=== PATIENT | female | born 1955 | race Caucasian/White ===

== ENCOUNTER 2021-07-02 19:48 | Emergency (ER) | payer MEDICARE, OTHER ==
[~2021-07-02 19:48] MED LIST: ALL DAY ALLERGY10 M2 PO; CIPRO500 MG PO
[2021-07-02 22:05] LABS: HEMOGLOBIN 15.6 gm/dl (12.3-15.3); RED BLOOD COUNT 4.8 M/UL (4.00-5.10)
[2021-07-02 22:26] LABS: BUN/CREATININE RATIO 10 (0-10)
[2021-07-03] MEDS ORDERED: DECADRON4 MG PO (02:22)
== END 2021-07-03 03:00 | disposition home or self-care (01) ==
LOC: ER1 19:48
PROVIDERS: Physician Assistant Medical
DX: R51.9 Headache, unspecified (principal); H92.03 Otalgia, bilateral; M40.204 Unspecified kyphosis, thoracic region; I25.2 Old myocardial infarction; Z90.710 Acquired absence of both cervix and uterus; Z88.0 Allergy status to penicillin; Z88.1 Allergy status to other antibiotic agents; F17.200 Nicotine dependence, unspecified, uncomplicated
CPT/HCPCS: 80053; 81001; 83605; 85025; 96372; 99284; J1100; J1885